=== PATIENT | female | born 1990 | race African-American/Black ===

== ENCOUNTER 2016-10-31 02:13 | Emergency (ER) | payer OTHER ==
[~2016-10-31] VITALS: Ht 165.1 cm; Wt 72.6 kg
[~2016-10-31 02:13] MED LIST: ACET-704 PO; HYDR25CA PO; IBUP-1060 PO
[2016-10-31 02:30] VITALS: BP 139/94
[2016-10-31 02:49] LABS: BILIRUBIN,URINE MODERATE (NEG); GLUCOSE,URINE NEGATIVE (NEG); NITRITE,URINE NEGATIVE (NEG); PROTEIN,URINE NEGATIVE (NEG-TRACE)
[2016-10-31 03:06] LABS: BACTERIA,URINE FEW /HPF (0-FEW); SQUAMOUS EPITHELIAL CELL,UR MOD /LPF
[2016-10-31 03:08] LABS: NEG OBC UR NEG; POS OBC UR POS
[2016-10-31] MEDS ORDERED: FLUCONAZOLE 100 MG TABLET. PO ONE (03:15)
[2016-10-31] MEDS ORDERED: AMOX500C PO (03:18)
[2016-10-31] MEDS ORDERED: IBUP-1060 PO (03:19)
--- NOTE | 2016-10-31 03:19 | PHYS DOC ---
Past Medical History Past Medical History: Anemia, Gallstones, Ovarian Cyst Past Surgical History: Cholecystectomy, Tubal ligation, Other Additional Past Surgical Histo: ERCP Alcohol Use: None Drug Use: None Adult General Chief Complaint Chief Complaint: ABDOMINAL PAIN [facility] HPI 26-year-old female who's complaining of multiple complaints primarily right ear pain, thick white discharge vaginally, and a sore throat. She denies any nausea or vomiting. She denies any shortness breath or chest pain. Patient states she is otherwise healthy and denies any significant health problems. She denies any dysuria or hematuria. Patient states she has been able to eat or drink with minimal difficulty. She also states she has been coughing up some blood-tinged sputum. Review of Systems Review of Systems Constitutional: Denies fever or chills [] Eyes: Denies change in visual acuity, redness, or eye pain [] HENT: Denies nasal congestion, has sore throat [] Respiratory: Denies cough or shortness of breath [] Cardiovascular: No additional information not addressed in HPI [] GI: Denies abdominal pain, nausea, vomiting, bloody stools or diarrhea [] : Denies dysuria or hematuria [] Musculoskeletal: Denies back pain or joint pain [] Integument: Denies rash or skin lesions [] Neurologic: Denies headache, focal weakness or sensory changes [] Endocrine: Denies polyuria or polydipsia [] Current Medications Current Medications Current Medications Medications (Trade) Dose Ordered Sig/Mandy Start Time Stop Time Status Last Admin Dose Admin Fluconazole (Diflucan) 100 mg STK-MED ONCE 10/31/16 03:20 10/31/16 03:33 DC Allergies Allergies Allergies Coded Allergies Type Severity Reaction Last Updated Verified hydrocodone Adverse Reaction Intermediate nausea 06/19/14 No Physical Exam Physical Exam Constitutional: Well developed, well nourished, no acute distress, non-toxic appearance. [] HENT: Normocephalic, atraumatic, bilateral external ears normal, has right TM that is injected c/w otitis media, oropharynx moist, no oral exudates, nose normal. [] Eyes: PERRLA, EOMI, conjunctiva normal, no discharge. [] Neck: Normal range of motion, no tenderness, supple, no stridor. [] Cardiovascular:Heart rate regular rhythm, no murmur [] Lungs & Thorax: Bilateral breath sounds clear to auscultation [] Abdomen: Bowel sounds normal, soft, no tenderness, no masses, no pulsatile masses. [] Skin: Warm, dry, no erythema, no rash. [] Back: No tenderness, no CVA tenderness. [] Extremities: No tenderness, no cyanosis, no clubbing, ROM intact, no edema. [] Neurologic: Alert and oriented X 3, normal motor function, normal sensory function, no focal deficits noted. [] Psychologic: Affect normal, judgement normal, mood normal. [] Current Patient Data Vital Signs Vital Signs Date Time Temp Pulse Resp B/P Pulse Ox O2 Delivery O2 Flow Rate FiO2 10/31/16 02:30 98.1 86 16 139/94 99 Room Air 98.1 Lab Values Laboratory Tests Test 10/31/16 02:23 Urine Collection Type Unknown Urine Color Nancy Urine Clarity Cloudy Urine pH 7.0 Urine Specific Dyer 1.020 Urine Protein Negativemg/dL (NEG-TRACE) Urine Glucose (UA) Negativemg/dL (NEG) Urine Ketones (Stick) Negativemg/dL (NEG) Urine Blood Negative (NEG) Urine Nitrite Negative (NEG) Urine Bilirubin Moderate (NEG) Urine Urobilinogen Dipstick 4.0mg/dL (0.2 mg/dL) Urine Leukocyte Esterase Small (NEG) Urine RBC 6-10/HPF (0-2) Urine WBC 5-10/HPF (0-4) Urine Squamous Epithelial Cells Mod/LPF Urine Bacteria Few/HPF (0-FEW) Urine Mucus Marked/LPF Urine Test Negative (NEG) EKG EKG [] Radiology/Procedures Radiology/Procedures [] Course & Med Decision Making Course & Med Decision Making Pertinent Labs and Imaging studies reviewed. (See chart for details) This 26 old female has physical exam findings of a right-sided otitis media and subjective complaints of yeast. I will be giving the patient a one-time dose of Diflucan for her yeast in prescribing a dose of amoxicillin and Motrin for her earache and sore throat symptoms. I do not see any indication at this time to perform any laboratory workup or pelvic exam. She will be discharged home and told to follow closely with her primary care doctor for symptom resolution. Dragon Disclaimer Dragon Disclaimer This electronic medical record was generated, in whole or in part, using a voice recognition dictation system. Departure Departure Impression: Primary Impression: Yeast infection Additional Impressions: Right otitis media Bronchitis Disposition: 01 HOME, SELF-CARE Condition: STABLE Referrals: CHARITY SANDRA MD (PCP) Patient Instructions: Otitis Media, Adult, [id number] Additional Instructions: Please follow up with your primary doctor in 2-3 days for your ear infection take your medication as prescribed. Return to the ER if you develop any worsening of your symptoms. Scripts Ibuprofen 800 Mg [id number] Mg PO PRN Q6HRS PRN INFLAMMATION #20 TAB Prov:PITO ACOSTA DO 10/31/16 Amoxicillin 500 Mg Capsule1 Cap PO BID #20 CAP Prov:PITO ACOSTA DO 10/31/16 Problem Qualifiers PITO ACOSTA DO Oct 31, 2016 03:19
[2016-10-31] MEDS ORDERED: FLUCONAZOLE 100 MG TABLET. ONE (03:20)
== END 2016-10-31 03:30 | disposition home or self-care (01) ==
LOC: ER 02:13
DX: B37.9 Candidiasis, unspecified (principal); H66.91 Otitis media, unspecified, right ear; J40 Bronchitis, not specified as acute or chronic; Z88.5 Allergy status to narcotic agent
CPT/HCPCS: 81001; 81025; 87086; 99284

== ENCOUNTER 2016-12-22 09:02 | Emergency (ER) | payer OTHER ==
[~2016-12-22] VITALS: Ht 165.1 cm; Wt 66.2 kg
[~2016-12-22 09:02] MED LIST changes: +AMOX500C PO
[2016-12-22 09:18] VITALS: BP 174/98
--- NOTE | 2016-12-22 10:13 | PHYS DOC ---
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 Patient states she has been told the itching is from liver disease. She states she was referred to a liver doctor but the doctor does not take her insurance. Patient states she has been seen at multiple hospitals as well as with her own PCP for this itching. She states she's been given multiple medications as well as creams with no relief. She states she has scheduled surgery next week for a kidney cyst. She states she is not allowed to take any blood thinners. PCP Dr. Rosa Review of Systems Review of Systems Constitutional: Denies fever or chills [] Eyes: Denies change in visual acuity, redness, or eye pain [] HENT: Denies nasal congestion or sore throat [] Respiratory: Denies cough or shortness of breath [] Cardiovascular: No additional information not addressed in HPI [] GI: Denies abdominal pain, nausea, vomiting, bloody stools or diarrhea [] : Denies dysuria or hematuria [] Musculoskeletal: Denies back pain or joint pain [] Integument: rash,itching Neurologic: Denies headache, focal weakness or sensory changes [] Endocrine: Denies polyuria or polydipsia [] Allergies Allergies Allergies Coded Allergies Type Severity Reaction Last Updated Verified hydrocodone Adverse Reaction Intermediate nausea 06/19/14 No Physical Exam Physical Exam Constitutional: Well developed, well nourished, no acute distress, non-toxic appearance. [] HENT: Normocephalic, atraumatic, bilateral external ears normal, oropharynx moist, no oral exudates, nose normal. [] Eyes: PERRLA, EOMI, conjunctiva normal, no discharge. [] Neck: Normal range of motion, no tenderness, supple, no stridor. [] Cardiovascular:Heart rate regular rhythm, no murmur [] Lungs & Thorax: Bilateral breath sounds clear to auscultation [] Abdomen: Bowel sounds normal, soft, no tenderness, no masses, no pulsatile masses. [] Skin: Patient is actively itching in the ED, no noticeable rashes. Back: No tenderness, no CVA tenderness. [] Extremities: No tenderness, no cyanosis, no clubbing, ROM intact, no edema. [] Neurologic: Alert and oriented X 3, normal motor function, normal sensory function, no focal deficits noted. [] Psychologic: Affect normal, judgement normal, mood normal. [] Current Patient Data Vital Signs Vital Signs Date Time Temp Pulse Resp B/P Pulse Ox O2 Delivery O2 Flow Rate FiO2 12/22/16 09:18 98.4 88 16 174/98 100 Room Air 98.4 EKG EKG [] Radiology/Procedures Radiology/Procedures [] Course & Med Decision Making Course & Med Decision Making Pertinent Labs and Imaging studies reviewed. (See chart for details) Patient is in the ED with a pruritic rash that began 10 months ago due to liver disease. She has been informed she needs to follow-up with a liver doctor, she states she cannot see one because they don't accept her medical insurance. She has been seen by multiple providers in different ED as well. I spoke to patient at length about her condition. She has a PCP. I recommended she sees the PCP, she states the PCP is not doing anything for the rash. I gav O e her a doctor's list and requested she tries a different PCP if she chooses to. I also recommended a long distance operator. I provided her a GI doctor. Discharge her with Vistaril and Benadryl. Provided her return precautions and discharged in stable condition Dragon Disclaimer Dragon Disclaimer This electronic medical record was generated, in whole or in part, using a voice recognition dictation system. Departure Departure Impression: Primary Impression: Chronic pruritus Disposition: 01 HOME, SELF-CARE Condition: STABLE Referrals: CHARITY ROSA MD (PCP) Try and follow-up with your own primary care doctor or pick a new doctor from the list provided PITO NERI MD You can follow-up with Dr. Neri for GI issues KECIA PUENTES MD You can follow-up with Dr. 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 Please follow-up with your primary care doctor, you can pick a new doctor from the list provided if you want to. You can also follow up with the long distance operator, and defence intelligence analyst. We provided you contact information. Scripts Hydroxyzine Hcl 25 Mg Tablet1 Tab PO TID #30 TAB Prov:MEMO RUBALCAVA APRN 12/22/16 MEMO RUBALCAVA APRN Dec 22, 2016 10:13
[2016-12-22] MEDS ORDERED: HYDR25TA PO (10:22)
== END 2016-12-22 10:32 | disposition home or self-care (01) ==
LOC: ER 09:02
DX: L29.8 Other pruritus (principal); K76.9 Liver disease, unspecified; I10 Essential (primary) hypertension; Z86.2 Personal history of diseases of the blood and blood-forming organs and certain disorders involving the immune mechanism; Z87.19 Personal history of other diseases of the digestive system; Z90.49 Acquired absence of other specified parts of digestive tract; Z98.51 Tubal ligation status; Z88.6 Allergy status to analgesic agent
CPT/HCPCS: 99283

== ENCOUNTER 2018-03-01 05:58 | Emergency (ER) | payer OTHER | END 2018-03-01 08:13 | disposition home or self-care (01) | LOC: ER 05:58 | DX: J06.9 Acute upper respiratory infection, unspecified (principal); J34.89 Other specified disorders of nose and nasal sinuses; I10 Essential (primary) hypertension; Z88.5 Allergy status to narcotic agent; Z88.6 Allergy status to analgesic agent | CPT/HCPCS: 71046; 99284 ==